=== PATIENT | male | born 1935 | race Caucasian/White ===

== ENCOUNTER 2019-10-14 18:45 | Emergency (ER) | payer OTHER ==
[~2019-10-14] VITALS: Ht 167.6 cm; Wt 73.0 kg
--- NOTE | 2019-10-14 18:50 | NUR ---
[id number] From home. AAOX4. C/O R hip pain s/p tripped and fell. -KO. Upon assessment hematoma noted on R eye. placed on monitor and pulse ox. no neuro deficit, PERRLA. [facility] AT BEDSIDE. NO ACUTE DISTRESS NOTED.
--- NOTE | 2019-10-14 19:22 | NUR ---
PT BACK FROM CT ON PAWAN
--- NOTE | 2019-10-14 19:22 | NUR ---
PT RECEIVED FROM STEPHANIE PELAEZ FOR [facility]. PT RETURN FROM RADIOLOGY ON GURNEY. PT IA AAOX4. NO RESP DISTRESS NOTED. EMT CALLED TO BEDSIDE FOR WOUND CLEANING ON R FOREHEAD.
[2019-10-14] MEDS ORDERED: ACETAMINOPHEN 325 MG TABLET PO ONE (20:30)
[2019-10-14] MEDS ORDERED: ACETAMINOPHEN 325 MG TABLET ONE (20:49)
--- NOTE | 2019-10-14 21:10 | NUR ---
[facility] called.
[2019-10-14 21:21] LABS: BASOPHILS % (AUTO) 0.3 % (0.0-2.0); EOSINOPHILS % (AUTO) 0.4 % (0.0-6.0); HEMATOCRIT 39 % (39-51); HEMOGLOBIN 13.1 g/dL (13.5-17.5); LYMPHOCYTES # (AUTO) 1.1 /CMM (0.8-4.8); LYMPHOCYTES % (AUTO) 10.8 % (20.0-44.0); MEAN CORPUSCULAR HGB CONC 33 g/dl (31.0-36.0); MEAN CORPUSCULAR VOLUME 88 fL (80-96); MONOCYTES # (AUTO) 0.4 /CMM (0.1-1.30); MONOCYTES % (AUTO) 4.1 % (2.0-12.0); NEUTROPHILS # (AUTO) 8.2 /CMM (1.8-8.9); NEUTROPHILS % (AUTO) 84.4 % (43.0-81.0); PLATELET COUNT (AUTO) 159 /CMM (150-450); RED BLOOD CELL COUNT(AUTO) 4.49 MIL/uL (4.5-6.0); WHITE BLOOD COUNT (AUTO) 9.8 K/uL (4.3-11.0)
[2019-10-14 21:37] LABS: CALCIUM, SERUM 8.7 mg/dL (8.5-10.1); CREATININE 1.2 mg/dL (0.6-1.3); POTASSIUM 3.8 mmol/L (3.5-5.1)
--- NOTE | 2019-10-14 22:11 | NUR ---
PT CLEANED AND PLACED IN DRY CLEAN GOWN
--- NOTE | 2019-10-14 23:02 | NUR ---
Call from [facility]. Pt accepted to [facility] by Dr Wagner. Bed [id number]. # for report [phone]. eta [phone]
--- NOTE | 2019-10-15 00:06 | NUR ---
REPORT GIVEN TO STEPHANIE LONDON FOR [facility] AT THE [facility]. [facility] [address] AT BEDSIDE FOR PT TRANSPORT. ON STABLE CONDITION. REPORT GIVEN TO AMBULANCE
[2019-10-15 00:19] VITALS: BP 161/87
--- NOTE | 2019-10-15 00:45 | NUR ---
PT LEFT TO [facility].
== END 2019-10-15 00:45 | disposition short-term general hospital (02) ==
LOC: ER 18:46 → EDBD 18:46 → ER 10-15 00:45
DX: S72.091A Other fracture of head and neck of right femur, initial encounter for closed fracture (principal); S00.83XA Contusion of other part of head, initial encounter; F03.90 Unspecified dementia, unspecified severity, without behavioral disturbance, psychotic disturbance, mood disturbance, and anxiety; I10 Essential (primary) hypertension; E78.5 Hyperlipidemia, unspecified; Z98.890 Other specified postprocedural states; W01.198A Fall on same level from slipping, tripping and stumbling with subsequent striking against other object, initial encounter; Y93.89 Activity, other specified; Y92.89 Other specified places as the place of occurrence of the external cause; Y99.8 Other external cause status
CPT/HCPCS: 36415; 70450-TC; 72170-TC; 73700-TC; 80048-TC; 85025-TC; 85730-TC